=== PATIENT | male | born 1955 | race Caucasian/White ===

== ENCOUNTER 2019-10-22 17:36 | Emergency (ER) | payer OTHER ==
[~2019-10-22] VITALS: Ht 172.7 cm; Wt 75.9 kg
[2019-10-22] MEDS ORDERED: ORPHENADRINE CITRATE 60 MG/2 ML VIAL. IM ONE (18:30)
[2019-10-22] MEDS ORDERED: KETOROLAC 60 MG/2 ML VIAL. IM ONE (18:30)
[2019-10-22] MEDS ORDERED: MORPHINE SULFATE 10 MG/ML SYRINGE. SQ ONE (18:30)
[2019-10-22] MEDS ORDERED: HYDR-1179 PO (18:31)
[2019-10-22] MEDS ORDERED: CYCL5TAB PO (18:31)
[2019-10-22 19:24] VITALS: BP 142/112
--- NOTE | 2019-10-23 03:11 | PHYS DOC ---
Past History Past Medical History: Constipation, Hypertension, Prostatitis Past Surgical History: Tonsillectomy Smoking: Quit Greater Than 1 Year Alcohol Use: None Drug Use: Methadone, Opiates Adult General Chief Complaint Chief Complaint: LOWER BACK PAIN OR INJURY.. " I have a bad back.. and had sciatic before... but I was bending over.. and chava twisted my back.. " HPI HPI Patient is a 63 year old male who presents with lumbar back pain with Lt. sciatica. Pt patient has history of chronic back pain with degenerative changes. Patient has lumbar canal narrowing as well as foraminal stenosis documented as far back as 2013. Pt. has plan for scheduled follow-up MRI at [facility]. The patient denies any history cancer, fever, chills, problems with defecation or urination. Patient follows with Dr. Bettencourt for care. Review of Systems Review of Systems Constitutional: Denies fever or chills [] Eyes: Denies change in visual acuity, redness, or eye pain [] HENT: Denies nasal congestion or sore throat [] Respiratory: Denies cough or shortness of breath [] Cardiovascular: No additional information not addressed in HPI [] GI: Denies abdominal pain, nausea, vomiting, bloody stools or diarrhea [] : Denies dysuria or hematuria [] Musculoskeletal: Patient complains of exacerbation of his chronic back pain and left sciatica. Integument: Denies rash or skin lesions [] Neurologic: Denies headache, focal weakness or sensory changes [] Endocrine: Denies polyuria or polydipsia [] All other systems were reviewed and found to be within normal limits, except as documented in this note. Family History Family History Non-contributory Current Medications Current Medications Current Medications Medications (Trade) Dose Ordered Sig/Radha Start Time Stop Time Status Last Admin Dose Admin Ketorolac Tromethamine (Toradol Im) 60 mg 1X ONCE 10/22/19 18:30 10/22/19 18:32 DC 10/22/19 18:58 60 MG Morphine Sulfate (Morphine 10mg Syringe) 10 mg 1X ONCE 10/22/19 18:30 10/22/19 18:32 DC 10/22/19 19:00 10 MG Orphenadrine Citrate (Norflex) 60 mg 1X ONCE 10/22/19 18:30 10/22/19 18:32 DC 10/22/19 18:58 60 MG Allergies Allergies Allergies Coded Allergies Type Severity Reaction Last Updated Verified Erythromycin Base Allergy Intermediate Nausea and Vomiting 03/30/14 Yes Hydromorphone Allergy Intermediate Nausea and Vomiting 03/30/14 Yes ciprofloxacin Allergy Intermediate 03/30/14 Yes doxycycline Allergy Intermediate Nausea and Vomiting 03/30/14 Yes sulfamethoxazole Allergy Intermediate Nausea 03/30/14 Yes trimethoprim Allergy Intermediate Nausea 03/30/14 Yes vancomycin Allergy Unknown 03/30/14 No Physical Exam Physical Exam Constitutional: in acute distress, non-toxic appearance. [] HENT: Normocephalic, atraumatic, bilateral external ears normal, oropharynx moist, no oral exudates, nose normal. [] Eyes: PERRLA, EOMI, conjunctiva normal, no discharge. [] Neck: Normal range of motion, no tenderness, supple, no stridor. [] Cardiovascular:Heart rate regular rhythm, no murmur [] Lungs & Thorax: Bilateral breath sounds equal at apex on auscultation [] Abdomen: Bowel sounds normal, soft, no tenderness, no masses, no pulsatile masses. [] No saddle loss. Skin: Warm, dry, no erythema, no rash. [] Back: Lower lumbar tenderness, no CVA tenderness. [] Extremities: No tenderness, no cyanosis, no clubbing, ROM intact, no edema. [] Lt sciatic nerve tenderness. SLL on Lt exacerbates his sciatica pain. Neurologic: Alert and oriented X 3, normal motor function, normal sensory function, no focal deficits noted. [] Psychologic: Affect anxious, judgement normal, mood normal. [] Current Patient Data Vital Signs Vital Signs Date Time Temp Pulse Resp B/P (MAP) Pulse Ox O2 Delivery O2 Flow Rate FiO2 10/22/19 19:24 77 18 142/112 (122) 97 Nasal Cannula 10/22/19 17:36 97.3 EKG EKG [] Radiology/Procedures Radiology/Procedures Review prior MRI reports. Pt decline xray s tonight.. has pending MRI via primary. [] Course & Med Decision Making Course & Med Decision Making Pertinent Labs and Imaging studies reviewed. (See chart for details) Patient avoid lifting. Patient use ice packs as needed for the next 3 days. May take Vicoprofen up to 4 times a day for marked pain. Take Tylenol and ibuprofen as needed for pain. Flexeril 10 mg 3 times a day for muscle spasms. Keep follow- up with primary care. Keep follow-up for MRI. Return if any concerns. Impression: 1. Exacerbation of chronic low back pain 2. 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 DJD [] Note there may be duplication of charting and omissions- secondary to computer malfunction. See hand written documentation. Dragon Disclaimer Dragon Disclaimer This electronic medical record was generated, in whole or in part, using a voice recognition dictation system. Departure Departure: Impression: Primary Impression: Sciatica Disposition: HOME/RESIDENCE PRIOR TO ADM Condition: GUARDED Patient Instructions: Sciatica, [id number] Additional Instructions: Ice packs as needed. Take tylenol and ibuprofen for pain. Keep follow up for your MRI. Marked pain Vicoprofen and Flexeril for pain and spasms. Keep followup. Scripts Cyclobenzaprine Hcl (CYCLOBENZAPRINE HCL) 5 Mg Tablet 5 MG PO TID PRN PRN for spasms, #30 TAB Prov: GRETEL CHAVEZ MD 10/22/19 Hydrocodone/Ibuprofen (HYDROCODONE-IBUPROFEN 7.5-200 ) 1 Each Tablet 1 TAB PO PRN Q6HRS PRN for PAIN, #30 TAB 0 Refills Prov: GRETEL CHAVEZ MD 10/22/19 Luciano Disclaimer This chart was dictated in whole or in part using Voice Recognition software in a busy, high-work load, and often noisy Emergency Department environment. It may contain unintended and wholly unrecognized errors or omissions. GRETEL CHAVEZ MD Oct 23, 2019 03:11
== END 2019-10-22 19:25 | disposition home or self-care (01) ==
LOC: ER 17:36
DX: M54.42 Lumbago with sciatica, left side (principal); I10 Essential (primary) hypertension; Z87.891 Personal history of nicotine dependence; Z90.49 Acquired absence of other specified parts of digestive tract; Z88.1 Allergy status to other antibiotic agents; Z88.2 Allergy status to sulfonamides; Z88.8 Allergy status to other drugs, medicaments and biological substances
CPT/HCPCS: 96372; 99284; J1885; J2270; J2360

== ENCOUNTER → 2020-06-21 | Outpatient (CLI) | payer OTHER ==
[~2020-06-21] MED LIST: CYCL5TAB PO; FAMO20TA5 PO; HYDR-1179 PO; LISI30TA4 PO; PANT40TA6 PO; QUET25TA PO; TEST5GEL TP
== END ==
LOC: LAB 07:45
PROVIDERS: ATTEND Registered Nurse
DX: Z01.812 Encounter for preprocedural laboratory examination (principal); Z20.828 Contact with and (suspected) exposure to other viral communicable diseases
CPT/HCPCS: 87426

== ENCOUNTER → 2020-06-21 | Day surgery (SDC) | payer OTHER ==
[~2020-06-21] MED LIST changes: +ANAS1TAB47 PO; +ASCO100T4 PO; +CANN100S PO; +GARL10002 PO; +LIDOCAINE 2% PF 5 ML VIAL. ONE; +PROPOFOL 10,000 MCG/ML (20ML) VIAL IV ONE; +SUCR1TAB PO; +VITA50004 PO
[2020-06-21 11:15] VITALS: BP 128/89
== END | disposition home or self-care (01) ==
LOC: SURG 07:53
PROVIDERS: ATTEND Internal Medicine Gastroenterology
DX: R10.13 Epigastric pain (principal); Z20.828 Contact with and (suspected) exposure to other viral communicable diseases; K29.50 Unspecified chronic gastritis without bleeding; K21.00 Gastro-esophageal reflux disease with esophagitis, without bleeding; K22.8 Other specified diseases of esophagus; I10 Essential (primary) hypertension; Z88.1 Allergy status to other antibiotic agents; Z88.8 Allergy status to other drugs, medicaments and biological substances; Z90.79 Acquired absence of other genital organ(s); Z98.890 Other specified postprocedural states; Z79.899 Other long term (current) drug therapy; Z88.6 Allergy status to analgesic agent
CPT/HCPCS: 43239; J2001; J2704; J3010; U0003

== ENCOUNTER → 2020-07-09 | Outpatient (CLI) | payer OTHER ==
[2020-06-21 11:15] VITALS: BP 128/89
[~2020-07-09] MED LIST changes: -LIDOCAINE 2% PF 5 ML VIAL. ONE; -PROPOFOL 10,000 MCG/ML (20ML) VIAL IV ONE
== END ==
LOC: LAB 13:17
PROVIDERS: ATTEND Nurse Anesthetist, Certified Registered
DX: Z01.812 Encounter for preprocedural laboratory examination (principal); Z20.828 Contact with and (suspected) exposure to other viral communicable diseases; Z13.9 Encounter for screening, unspecified
CPT/HCPCS: U0003

== ENCOUNTER → 2020-07-12 | Day surgery (SDC) | payer OTHER ==
[~2020-07-12] MED LIST changes: +IPRATRPIUM/ALBUTEROL 0.5/2.5MG 3 ML NEBU. NEB PRN; +IV RINGERS SOLUTION,LACTATED 1,000 ML IV SCH; +MIDAZOLAM HCL PF 2 MG/2 ML VIAL. IV ONE; +ONDANSETRON PF 4 MG/2 ML VIAL. IV PRN; +PROPOFOL 10,000 MCG/ML (20ML) VIAL IV ONE
[2020-07-12 12:49] VITALS: BP 107/76
== END ==
LOC: SURG 10:53
PROVIDERS: ATTEND Internal Medicine Gastroenterology
DX: Z12.11 Encounter for screening for malignant neoplasm of colon (principal); K64.8 Other hemorrhoids; I10 Essential (primary) hypertension; K29.50 Unspecified chronic gastritis without bleeding; K21.00 Gastro-esophageal reflux disease with esophagitis, without bleeding; K22.8 Other specified diseases of esophagus; Z79.899 Other long term (current) drug therapy; Z88.8 Allergy status to other drugs, medicaments and biological substances; Z88.2 Allergy status to sulfonamides; Z88.1 Allergy status to other antibiotic agents; Z88.6 Allergy status to analgesic agent; Z86.010 Personal history of colon polyps; Z87.891 Personal history of nicotine dependence; Z90.49 Acquired absence of other specified parts of digestive tract; Z90.79 Acquired absence of other genital organ(s)
CPT/HCPCS: 45378; J2704; J7120

== ENCOUNTER → 2020-09-16 | Outpatient (CLI) | payer OTHER ==
[2020-07-12 12:49] VITALS: BP 107/76
[~2020-09-16] MED LIST changes: -IPRATRPIUM/ALBUTEROL 0.5/2.5MG 3 ML NEBU. NEB PRN; -IV RINGERS SOLUTION,LACTATED 1,000 ML IV SCH; -MIDAZOLAM HCL PF 2 MG/2 ML VIAL. IV ONE; -ONDANSETRON PF 4 MG/2 ML VIAL. IV PRN; -PROPOFOL 10,000 MCG/ML (20ML) VIAL IV ONE
--- NOTE | 2020-09-16 09:47 | RAD ---
EXAM: Abdomen sonogram. HISTORY: Pain. TECHNIQUE: Sonographic imaging of the abdomen was performed. COMPARISON: None. FINDINGS: The liver is normal in size. No focal hepatic lesion is seen. The liver parenchyma is sligh tly echogenic. The gallbladder is unremarkable. The common bile duct is normal in caliber. The kidney s are normal in size. The pancreas, spleen, aorta and inferior vena cava are unremarkable. IMPRESSION: 1. Slightly echogenic liver parenchyma. This may be due to imaging technique or steatosis. 2. Otherwise, unremarkable abdomen sonogram. Electronically signed by: Renetta Paulino MD (09/16/2020 9:45 AM) [id number]
== END ==
LOC: US 08:53
PROVIDERS: ATTEND Internal Medicine Gastroenterology
DX: R10.9 Unspecified abdominal pain (principal)
CPT/HCPCS: 76700